=== PATIENT | male | born 1945 | race Caucasian/White ===

== ENCOUNTER 2018-12-22 11:35 | Emergency (ER) | payer OTHER ==
[~2018-12-22] VITALS: Ht 175.3 cm; Wt 63.5 kg
[2018-12-22 13:25] LABS: Mean Corpuscular Hgb Conc. 27.5 g/dL (32.0-36.0); Mean Corpuscular Volume 54.6 fL (80.0-100.0); Platelet Count (auto) 321 10^3/uL (140-450); Red Blood Cells 3.12 10^6/uL (4.5-5.90); White Blood Cell 7.1 10^3/uL (4.4-10.8)
[2018-12-22 13:39] LABS: Red Cell Distribution Width 21.8 % (11.8-14.3)
[2018-12-22 13:42] LABS: Hemoglobin 4.7 g/dL (13.5-17.5)
[2018-12-22 13:43] LABS: Albumin 3.3 g/dL (3.4-5.0); Anion Gap 11 (5-15); Basophils % (manual) 0 (0.0-2.0); Blast Cells 0; Blood Urea Nitrogen 24 mg/dL (7-18); Calcium 8.8 mg/dL (8.5-10.1); Carbon Dioxide 20 mmol/L (21-32); Chloride 109 mmol/L (98-107); Glucose 201 mg/dL (74-106); Metamyelocytes % 0; Myelocytes % 0; Potassium 4.2 mmol/L (3.5-5.1); Promyelocytes % 0; Reactive Lymphocytes 0; Sodium 140 mmol/L (136-145)
[2018-12-22 13:50] LABS: Alanine Aminotransferase 15 U/L (16-61); Alkaline Phosphatase 45 U/L (45-117); Aspartate Aminotransferase 13 U/L (15-37); BUN/Creatinine Ratio 23.8; Bilirubin, Total 0.5 mg/dL (0.2-1.0); GFR African American 93 mL/min; GFR Non-African American 77 mL/min; Total Protein 6.8 g/dL (6.4-8.2)
[2018-12-22 14:08] LABS: Band Neutrophils % (manual) 3; Eosinophils % (manual) 1 (0-7); Lymphocytes % (manual) 11 (10.0-50.0); Monocytes % (manual) 4 (0-12)
[2018-12-22] MEDS ORDERED: SODIUM CHLORIDE 0.9% 1,000 ML IV ONE (14:09)
[2018-12-22] MEDS ORDERED: PANTOPRAZOLE 40 MG/10 ML VIAL INJ IV STA (14:09)
[2018-12-22] MEDS ORDERED: IOHEXOL 300 MG/ML 100ML BOTTLE IJ ONE (14:20)
[2018-12-22 15:15] LABS: Magnesium 2.1 mg/dL (1.6-2.6)
[2018-12-22 15:52] LABS: INR 0.96 (0.9-1.15); Partial Thromboplastin Time < 20.0 sec (23.64-32.05)
[2018-12-22] MEDS ORDERED: BENZOCAINE (DENTAL)20% 1 SPR SPRAY MT ONE (16:30)
[2018-12-22 18:05] VITALS: BP 178/86
[2018-12-22 19:01] VITALS: BP 170/63
[2018-12-22 20:27] VITALS: BP 145/60
[2018-12-22 21:29] VITALS: BP 141/56
[2018-12-22 21:41] LABS: Urine Bacteria NONE SEEN /hpf (None Seen); Urine Blood Negative /uL (Negative); Urine Hyaline Cast FEW /lpf (0 - 2); Urine WBC 1 /hpf (0 - 3)
[2018-12-22 21:55] LABS: Urine Specific Gravity > 1.050 (1.001-1.035)
== END 2018-12-22 21:22 | disposition home or self-care (01) ==
LOC: EDBD 11:35 → ER 11:35
DX: K40.20 Bilateral inguinal hernia, without obstruction or gangrene, not specified as recurrent (principal); M47.896 Other spondylosis, lumbar region; J44.9 Chronic obstructive pulmonary disease, unspecified; E46 Unspecified protein-calorie malnutrition; E11.9 Type 2 diabetes mellitus without complications; D50.0 Iron deficiency anemia secondary to blood loss (chronic); I25.10 Atherosclerotic heart disease of native coronary artery without angina pectoris; K21.9 Gastro-esophageal reflux disease without esophagitis; I10 Essential (primary) hypertension
CPT/HCPCS: 36415; 36430; 71045; 74177; 80053; 81001; 82962; 83690; 83735; 84443; 84484; 85007; 85027; 85610; 85730; 86850; 86900; 86901; 86920; 93005; 94761; 96361; 96374; 99291; C9113; P9016; Q9967